=== PATIENT | female | born 1995 | race American Indian/Alaskan Native ===

== ENCOUNTER 2018-06-18 12:09 | Emergency (ER) | payer MEDICAID ==
[2018-06-18 12:18] VITALS: RESP 18; O2SAT 100
[2018-06-18] MEDS ORDERED: Sodium Chloride 0.9% 1,000 ML IV ONE (12:25)
[2018-06-18] MEDS ORDERED: Sodium Chloride 0.9% 0 ML ONE (12:44)
[2018-06-18] MEDS ORDERED: Sodium Chloride 0.9% 1,000 ML ONE (12:49)
[2018-06-18 12:51] LABS: HCG,QUALITATIVE URINE NEGATIVE (NEGATIVE); SQUAMOUS EPITHIAL 10 /hpf (0-5); URINE BILIRUBIN NEGATIVE (NEGATIVE); URINE BLOOD NEGATIVE (NEGATIVE); URINE CLARITY Hazy (Clear); URINE COLOR Yellow (YELLOW); URINE GLUCOSE (UA) NORMAL (Normal); URINE LEUKOCYTE ESTERASE NEG Leu/uL (Negative); URINE PROTEIN NEGATIVE (NEGATIVE); URINE UROBILINOGEN NORMAL mg/dL (0.2-1.0)
[2018-06-18 13:02] LABS: BASO # 0.1 K/uL (0.0-0.2); BASO % 0.7 % (0.0-2.0); EOS # 0.1 K/uL (0.0-0.7); EOS % 1.5 % (0.0-4.0); HEMOGLOBIN 12.3 g/dL (11.0-16.0); LYMPH # 2.2 K/uL (1.0-4.3); LYMPH % 24.5 % (20.0-40.0); MEAN CELL VOLUME 86.7 fL (81.0-99.0); MEAN CORPUSCULAR HGB CONC 33.5 g/dL (33.0-37.0); MEAN PLATELET VOLUME 7.5 fL (7.2-11.7); MONO # 0.7 K/uL (0.0-0.8); MONO % 7.3 % (0.0-10.0); NEUT # 5.9 K/uL (1.8-7.0); NRBC % 0.1 % (0.0-2.0); RBC 4.25 Mil/uL (3.80-5.20); RED CELL DISTRIBUTION WIDTH 14.9 % (11.5-14.5)
--- NOTE | 2018-06-18 13:12 | C.PDOC ---
History Of Present Illness 23-year-old female presents to the emergency department with complaints of upper abdominal pain and vomiting which started a few days ago. Patient states that she now feels dizzy. Patient has history of IBS, states that her pain is dull intermittent but not radiating. Time Seen by Provider: 06/18/18 12:22 Chief Complaint (Nursing): Abdominal Pain History Per: Patient History/Exam Limitations: no limitations Onset/Duration Of Symptoms: Days, Intermittent Episodes Current Symptoms Are (Timing): Still Present Location Of Pain/Discomfort: Other (upper abdomen) Radiation Of Pain To:: None Quality Of Discomfort: Dull Associated Symptoms: Vomiting Past Medical History Reviewed: Historical Data, Nursing Documentation, Vital Signs Vital Signs: Last Vital Signs Temp 98.4 F 06/18/18 12:16 Pulse 90 06/18/18 12:16 Resp 18 06/18/18 12:16 BP 130/82 06/18/18 12:16 Pulse Ox 100 06/18/18 12:16 - Medical History PMH: No Chronic Diseases Surgical History: No Surg Hx Family History: States: No Known Family Hx - Social History Hx Alcohol Use: No Hx Substance Use: No Review Of Systems Constitutional: Negative for: Fever, Chills Respiratory: Negative for: Cough Gastrointestinal: Positive for: Vomiting, Abdominal Pain Neurological: Positive for: Dizziness Physical Exam - Physical Exam Appears: Non-toxic, No Acute Distress Skin: Normal Color, Warm, Dry Head: Atraumatic, Normacephalic Eye(s): bilateral: Normal Inspection, PERRL, EOMI Oral Mucosa: Moist Neck: Normal, Supple Chest: Symmetrical, No Tenderness Cardiovascular: Rhythm Regular, No Murmur Respiratory: Normal Breath Sounds, No Rales, No Rhonchi, No Wheezing Gastrointestinal/Abdominal: Soft, Tenderness (diffuse upper abdominal tenderness), No Guarding, No Rebound Extremity: Normal ROM Neurological/Psych: Oriented x3, Normal Speech, Normal Cognition ED Course And Treatment - Laboratory Results Result Diagrams: 06/18/18 12:57 06/18/18 12:57 Lab Results: Urine Color Yellow (YELLOW) 06/18/18 12:36 Urine Clarity Hazy (Clear) 06/18/18 12:36 Urine pH 5.0 (5.0-8.0) 06/18/18 12:36 Ur Specific [place] 1.026 (1.003-1.030) 06/18/18 12:36 Urine Protein Negative mg/dL (NEGATIVE) 06/18/18 12:36 Urine Glucose (UA) Normal mg/dL (Normal) 06/18/18 12:36 Urine Ketones Negative mg/dL (NEGATIVE) 06/18/18 12:36 Urine Blood Negative (NEGATIVE) 06/18/18 12:36 Urine Nitrate Negative (NEGATIVE) 06/18/18 12:36 Urine Bilirubin Negative (NEGATIVE) 06/18/18 12:36 Urine Urobilinogen Normal mg/dL (0.2-1.0) 06/18/18 12:36 Ur Leukocyte Esterase Neg Shaw/uL (Negative) 06/18/18 12:36 Urine WBC (Auto) 2 /hpf (0-5) 06/18/18 12:36 Urine RBC (Auto) 1 /hpf (0-3) 06/18/18 12:36 Ur Squamous Epith Cells 10 /hpf (0-5) H 06/18/18 12:36 Urine HCG, Qual Negative (NEGATIVE) 06/18/18 12:36 Urine HCG, Qual Negative (NEGATIVE) 06/18/18 12:36 Interpretation Of ECG: Normal sinus rhythm at 85 bpm O2 Sat by Pulse Oximetry: 100 (RA) Pulse Ox Interpretation: Normal - CT Scan/US US abdomen Other Rad Studies (CT/US): Read By Radiologist, Radiology Report Reviewed CT/US Interpretation: Date of service: 06/18/2018. HISTORY: RUQ pain, r/o ashley. COMPARISON: None. TECHNIQUE: Grayscale imaging was performed. FINDINGS: LIVER: Measures 16.7 cm in length. There is diffuse increased echogenicity of the liver parenchyma. No mass. No intrahepatic bile duct dilatation. GALLBLADDER: There are no gallstones, wall thickening or pericholecystic fluid. The sonographic Iglesias's sign is negative. COMMON BILE DUCT: Measures 5.5 mm. No stones. No dilatation. PANCREAS: Unremarkable as visualized. No mass. No ductal dilatation. RIGHT KIDNEY: Measures 10.3 cm in length. Normal echogenicity. No calculus, mass, or hydronephrosis. AORTA: No aneurysmal dilatation. IVC: Unremarkable. OTHER FINDINGS: None . IMPRESSION: No cholelithiasis or biliary dilatation. Fatty liver Medical Decision Making Medical Decision Making: Plan: CMP Lipase CBC Pepcid 20mg IVP NaCl IV Fluids Zofran 4mg IVP HCG Qualitative Urine Urinalysis US Abdomen Disposition Counseled Patient/Family Regarding: Studies Performed, Diagnosis, Need For Followup, Rx Given - Disposition Referrals: Dangelo Connell MD [Staff Provider] - Disposition: HOME/ ROUTINE Disposition Time: 13:57 Condition: STABLE Prescriptions: Dicyclomine [Dicyclomine HCl] 10 mg PO TID #14 cap Famotidine [Pepcid] 40 mg PO DAILY #14 tablet Ondansetron ODT [Zofran ODT] 4 mg PO TID #12 odt Instructions: Acute Abdomen (Belly Pain), Nausea and Vomiting, Adult Forms: [facility] ([place]), Work Excuse - POA Present On Arrival: None - Clinical Impression Clinical Impression: Abdominal pain - Scribe Statement The provider has reviewed the documentation as recorded by the Scribe (Kalros Muñiz) Provider Attestation: All medical record entries made by the Scribe were at my direction and personally dictated by me. I have reviewed the chart and agree that the record accurately reflects my personal performance of the history, physical exam, medical decision making, and the department course for this patient. I have also personally directed, reviewed, and agree with the discharge instructions and disposition.
--- NOTE | 2018-06-18 13:25 | US ---
Date of service: 06/18/2018 HISTORY: RUQ pain, r/o ashley COMPARISON: None. TECHNIQUE: Grayscale imaging was performed. FINDINGS: LIVER: Measures 16.7 cm in length. There is diffuse increased echogenicity of the liver parenchyma. No mass. No intrahepatic bile duct dilatation. GALLBLADDER: There are no gallstones, wall thickening or pericholecystic fluid. The sonographic Iglesias's sign is negative. COMMON BILE DUCT: Measures 5.5 mm. No stones. No dilatation. PANCREAS: Unremarkable as visualized. No mass. No ductal dilatation. RIGHT KIDNEY: Measures 10.3 cm in length. Normal echogenicity. No calculus, mass, or hydronephrosis. AORTA: No aneurysmal dilatation. IVC: Unremarkable. OTHER FINDINGS: None . IMPRESSION: No cholelithiasis or biliary dilatation. Fatty liver.
[2018-06-18 13:33] LABS: ALB/GLOB RATIO 1.2 (1.0-2.1); ALBUMIN 3.8 g/dL (3.5-5.0); ALT/SGPT 13 U/L (9-52); AST/SGOT 17 U/L (14-36); BLOOD UREA NITROGEN 14 mg/dL (7-17); CALCIUM 8.8 mg/dl (8.6-10.4); GFR NON-AFRICAN AMERICAN > 60; LIPASE 173 U/L (23-300)
[2018-06-18 14:12] VITALS: BP 132/78; PULSE 88; TEMP 98.5
--- NOTE | 2018-06-19 10:57 | CARD ---
APPROVED REPORT Date of service: 06/18/2018 EKG Measurement Heart [id number] <Conclusion> Normal sinus rhythm Normal ECG
== END 2018-06-18 14:13 | disposition home or self-care (01) ==
LOC: C.ER 12:09
DX: R10.10 Upper abdominal pain, unspecified (principal)
CPT/HCPCS: 76705; 80053; 81001; 83690; 84703; 85025; 93005; 96361; 96374; 96375; 99284; J2405; J7030

== ENCOUNTER 2018-06-30 17:01 | Emergency (ER) | payer MEDICAID | END 2018-06-30 19:00 | disposition home or self-care (01) | LOC: C.ER 17:01 ==